=== PATIENT | male | born 1930 | race Caucasian/White ===

== ENCOUNTER 2018-03-10 10:05 | Day surgery (SDC) | payer MEDICARE, BC ==
[~2018-03-10] VITALS: Ht 172.7 cm; Wt 86.5 kg
[2018-03-10] VITALS (11 sets, daily range): BP systolic 112–148; BP diastolic 52–77
[2018-03-10] MEDS ORDERED: dextrose ORAL solution 15 GM/59 ML bottle PO PRN ×2 (10:30)
[2018-03-10] MEDS ORDERED: diphenhydrAMINE 25mg capsule PO PRN (10:30)
[2018-03-10] MEDS ORDERED: nitroGLYCERIN 0.4mg SUBLingual tab SL PRN ×2 (10:30→14:25)
[2018-03-10] MEDS ORDERED: normal saline 1000ml 1,000 ML IV SCH ×2 (10:30→14:25)
[2018-03-10] MEDS ORDERED: glucagon, human recombinant 1mg kit SUBCUT PRN (10:30)
[2018-03-10] MEDS ORDERED: dextrose 50%-water 50ml dispensing syringe IV PRN ×2 (10:30)
[2018-03-10] MEDS ORDERED: insulin Lispro (HumaLOG) vial - multi-dose SQ SCH (10:30)
[2018-03-10] MEDS ORDERED: LORazepam 0.5 MG tablet PO PRN (10:30)
[2018-03-10] MEDS ORDERED: MESSAGE TO PHARMACY PO ONE (10:30)
[2018-03-10 11:22] LABS: BASOPHILS # (AUTO) 0.1 X10'3 (0-0.2); BASOPHILS % (AUTO) 0.9 % (0-1); EOSINOPHILS # (AUTO) 0.3 X10'3 (0-0.9); EOSINOPHILS % (AUTO) 4.1 % (0-6); HEMATOCRIT 41.6 % (42.0-52.0); LYMPHOCYTES # (AUTO) 1.3 X10'3 (1.1-4.8); MEAN CORPUSCULAR HGB CONC 33.7 % (33.0-36.5); MEAN CORPUSCULAR VOLUME 88.8 FL (78-98); MEAN PLATELET VOLUME 8.4 FL (7.4-10.4); MONOCYTES # (AUTO) 0.5 X10'3 (0-0.9); NEUTROPHILS # (AUTO) 5.3 X10'3 (1.8-7.7); PLATELET COUNT 235 X10'3 (140-440); RED BLOOD COUNT 4.68 X10'6 (4.70-6.10); RED CELL DISTRIBUTION WIDTH 14.7 % (11.5-14.5); WHITE BLOOD COUNT 7.5 X10'3 (4.5-11.0)
[2018-03-10 11:30] LABS: PROTHROMBIN TIME 9.9 SECONDS (9.0-12.0)
[2018-03-10] MEDS ORDERED: METF500T PO (11:30)
[2018-03-10] MEDS ORDERED: PRAV20TA4 PO (11:30)
[2018-03-10] MEDS ORDERED: LISI1TAB11 PO (11:30)
[2018-03-10] MEDS ORDERED: LANS30CA37 PO (11:30)
[2018-03-10] MEDS ORDERED: ETOD-78 PO (11:30)
[2018-03-10] MEDS ORDERED: FLO0.4C PO (11:30)
[2018-03-10] MEDS ORDERED: ASPI81TA52 PO (11:30)
[2018-03-10] MEDS ORDERED: RANI300T7 PO (11:30)
[2018-03-10 11:31] LABS: ALBUMIN 4.2 G/DL (3.4-5.0); ANION GAP 10 (8-16); BLOOD UREA NITROGEN 14 MG/DL (7-18); BUN/CREATININE RATIO 18.9 (5.4-32.0); CALCIUM 9.8 MG/DL (8.5-10.1); CHLORIDE 100 MMOL/L (99-107); CREATININE 0.74 MG/DL (0.60-1.10); POTASSIUM 4.1 MMOL/L (3.5-5.1); SODIUM 139 MMOL/L (135-145); TOTAL CARBON DIOXIDE 28.6 MMOL/L (24-32); eGFR > 90 ML/MIN
[2018-03-10 11:32] LABS: GLUCOSE 116 MG/DL (70-104)
[2018-03-10] MEDS ORDERED: midazolam 2 mg/2 ml injection ONE (12:26)
[2018-03-10] MEDS ORDERED: fentaNYL/PF 50MCG/1 ML 2ML syringe ONE (12:26)
[2018-03-10] MEDS ORDERED: iohexol 350 MG/ML 50ML vial IV ONE ×2 (12:27→13:02)
[2018-03-10] MEDS ORDERED: LIDOcaine 1%/PF (10mg/ml) 5ml vial ONE (12:27)
[2018-03-10] MEDS ORDERED: iohexol 350MG/ML 100ml bottle IV ONE (12:27)
[2018-03-10] MEDS ORDERED: proCHLORperazine 10 MG/2 ml inj IV PRN (14:25)
[2018-03-10] MEDS ORDERED: HYDROcodone/acetaminophen 10/325mg tab PO PRN (14:25)
[2018-03-10] MEDS ORDERED: OXAZEpam 15mg capsule PO PRN (14:25)
[2018-03-10] MEDS ORDERED: ondansetron/PF 4mg/2ml inj IV PRN (14:25)
[2018-03-10] MEDS ORDERED: HYDROcodone/acetaminophen 5mg/325mg tablet PO PRN (14:25)
[2018-03-10 18:57] LABS: HEMOGLOBIN A1C 5.8 % (4.5-6.2)
[2018-03-10] MEDS ORDERED: insulin glargine (Lantus) pen - multi-dose SQ SCH (21:00)
== END 2018-03-10 19:30 | disposition home or self-care (01) ==
LOC: SSTAY O 10:05
PROVIDERS: ATTEND Internal Medicine Cardiovascular Disease
DX: I25.119 Atherosclerotic heart disease of native coronary artery with unspecified angina pectoris (principal); E11.9 Type 2 diabetes mellitus without complications; E78.00 Pure hypercholesterolemia, unspecified; I10 Essential (primary) hypertension; M81.0 Age-related osteoporosis without current pathological fracture; N40.0 Benign prostatic hyperplasia without lower urinary tract symptoms; I08.0 Rheumatic disorders of both mitral and aortic valves; G89.29 Other chronic pain; Z98.42 Cataract extraction status, left eye; Z98.41 Cataract extraction status, right eye; Z79.82 Long term (current) use of aspirin; Z79.84 Long term (current) use of oral hypoglycemic drugs; Z87.891 Personal history of nicotine dependence; Z72.89 Other problems related to lifestyle; Z98.890 Other specified postprocedural states; Z79.899 Other long term (current) drug therapy
CPT/HCPCS: 36415; 71046; 80048; 82948; 83036; 85025; 85610; 93458; 93567; 99152; 99153; A6257; C1769; J1644; J2001; J2250; J3010; J7030; Q0163; Q9967; A4620; J1815

== ENCOUNTER 2018-03-16 12:30 | Inpatient (IN) | payer MEDICARE, BC ==
[~2018-03-16] VITALS: Ht 172.7 cm; Wt 85.0 kg
[~2018-03-16 12:30] MED LIST: ASPI81TA52 PO; FLO0.4C PO; LANS30CA37 PO; LISI1TAB11 PO; METF500T PO; PRAV20TA4 PO
[2018-03-16] MEDS ORDERED: METH500T4 PO (13:00)
[2018-03-16] MEDS ORDERED: DOCU-264 PO (13:00)
[2018-03-16 13:50] LABS: BASOPHILS # (AUTO) 0.1 X10'3 (0-0.2); BASOPHILS % (AUTO) 0.7 % (0-1); EOSINOPHILS # (AUTO) 0.4 X10'3 (0-0.9); LYMPHOCYTES # (AUTO) 1.4 X10'3 (1.1-4.8); LYMPHOCYTES % (AUTO) 17.4 % (21-51); MEAN CORPUSCULAR HEMOGLOBIN 30.2 PG (27.0-31.0); MEAN CORPUSCULAR HGB CONC 33.7 % (33.0-36.5); MEAN CORPUSCULAR VOLUME 89.4 FL (78-98); MEAN PLATELET VOLUME 8.5 FL (7.4-10.4); MONOCYTES # (AUTO) 0.7 X10'3 (0-0.9); MONOCYTES % (AUTO) 8.3 % (2-12); NEUTROPHILS # (AUTO) 5.5 X10'3 (1.8-7.7); NEUTROPHILS % (AUTO) 68.6 % (42-75); PRE OP HEMATOCRIT 35.8 % (42.0-52.0); PRE OP HEMOGLOBIN 12.1 g/dL (14.0-17.9); PRE OP PLATELET COUNT 202 X10'3 (140-440); RED CELL DISTRIBUTION WIDTH 14.1 % (11.5-14.5)
[2018-03-16] MEDS ORDERED: albuterol 2.5 MG/3 ML nebule NEB ONE (13:50)
[2018-03-16 13:51] LABS: CLARITY,URINE Cloudy (Clear); COLOR,URINE Yellow (Yellow); GLUCOSE, URINE Negative (Neg); KETONES,URINE Negative (Neg); LEUKOCYTE ESTERASE ,URINE Large (Neg); NITRITES, URINE Negative (Neg); OCCULT BLOOD,URINE Trace (Neg); PH,URINE 7.5 (4.8-8.0); PROTEIN,URINE Negative (Neg); UROBILINOGEN,URINE 0.2 E.U/dL (0.2-1.0)
[2018-03-16 13:58] LABS: UA COLLECTION TYPE NON-SPECIFIED
[2018-03-16 14:01] LABS: PRE OP PROTIME 10.4 SECONDS (9.0-12.0)
[2018-03-16 14:01] LABS: MUCUS STRANDS NONE SEEN /LPF (Neg); SQUAMOUS EPITHELIAL CELL,UR MODERATE /LPF (FEW)
[2018-03-16 14:02] LABS: BACTERIA,URINE 4+ /HPF (Neg); RBC,URINE 0-2 /HPF (0-2)
[2018-03-16 14:03] LABS: WBC CLUMPS,URINE FEW /HPF (NEGATIVE)
[2018-03-16 14:07] LABS: ALBUMIN 3.4 G/DL (3.4-5.0); ALBUMIN/GLOBULIN RATIO 0.9 (1.1-1.5); ALKALINE PHOSPHATASE 53 IU/L (46-116); BLOOD UREA NITROGEN 12 MG/DL (7-18); BUN/CREATININE RATIO 16.7 (5.4-32.0); CHLORIDE 102 MMOL/L (99-107); CREATININE 0.72 MG/DL (0.60-1.10); PRE OP ALT 20 U/L (30-65); PRE OP ANION GAP 6 (8-16); PRE OP AST 13 U/L (10-37); PRE OP BILIRUB, TOTAL 0.4 MG/DL (0.0-1.0); PRE OP GLUCOSE 91 MG/DL (70-104); PRE OP POTASSIUM 3.9 MMOL/L (3.4-5.1); PRE OP SODIUM 138 MMOL/L (135-145); TOTAL CARBON DIOXIDE 30.1 MMOL/L (24-32); TOTAL PROTEIN 7.1 G/DL (6.4-8.2); eGFR > 90 ML/MIN
[2018-03-16 14:12] LABS: HEMOGLOBIN A1C 5.7 % (4.5-6.2)
[2018-03-16 15:40] LABS: ABG BASE EXCESS 0.3 mmol/L (-2.0-3.0); ABG HCO3 24.2 mmol/L (22.0-26.0); ABG OXYGEN SATURATION 96.6 % (95-98); ABG PCO2 (T) 36.7 mmHg (35.0-48.0); ABG PH (T) 7.437 (7.350-7.450); ABG PO2 (T) 85.5 mmHg (83-108); ALLEN'S TEST Positive; FCOHb 0.5 % (0.5-1.5); FMetHb 0.1 % (0.3-1.12); TOTAL HEMOGLOBIN 12.9 G/dl (14.0-18.0)
[2018-03-18] VITALS (16 sets, daily range): BP systolic 128–168; BP diastolic 46–75
[2018-03-18] MEDS ORDERED: ringers solution, lacted 1,000 ML IV SCH (05:00)
[2018-03-18] MEDS ORDERED: dextrose 50%-water 50ml dispensing syringe IV PRN ×2 (05:30→13:25)
[2018-03-18] MEDS ORDERED: vancomycin inj 1,500 MG in normal saline 300ml IV soln IV ONE (05:30)
[2018-03-18] MEDS ORDERED: ceFAZolin inj. 2,000 MG in normal saline 100ml IV soln 100 ML IV ONE (05:30)
[2018-03-18] MEDS ORDERED: LORazepam 2 mg/ml vial IV ONE (05:30)
[2018-03-18] MEDS ORDERED: famotidine 20mg tablet PO ONE (05:30)
[2018-03-18] MEDS ORDERED: calcium chloride 100 MG/1 ML inj IV ONE (08:00)
[2018-03-18] MEDS ORDERED: magnesium 1 GM/2 ML inj ONE (08:00)
[2018-03-18] MEDS ORDERED: methylPREDNISolone sod succ 1000mg vial ONE (08:00)
[2018-03-18] MEDS ORDERED: papaverine 30 mg/ml 2ml inj. ONE (08:00)
[2018-03-18] MEDS ORDERED: LIDOcaine 2% (20 mg/ml) 5ml cardiac syringe ONE (08:00)
[2018-03-18] MEDS ORDERED: potassium Cl 2 mEq/ml inj IV ONE (08:00)
[2018-03-18] MEDS: mupirocin 2% ointment 22GM TP SCH ×2 (08:00→08:32)
[2018-03-18] MEDS ORDERED: heparin 10,000 units/1 ML INJ ONE ×2 (08:00)
[2018-03-18] MEDS ORDERED: phenylephrine 1% (X-tra strg) 15ml nasal spray NS ONE (08:00)
[2018-03-18] MEDS ORDERED: albumin (human) 25% 100 ML IV solution IV ONE (08:00)
[2018-03-18] MEDS ORDERED: heparin 1,000 units/ml 10ml inj ONE (08:00)
[2018-03-18] MEDS ORDERED: LORazepam 2 mg/ml vial ONE (08:24)
[2018-03-18] MEDS: insulin regular, human 100 UNITS in normal saline 100ml IV soln 99 ML IV SCH ×12 (08:34→21:24)
[2018-03-18] MEDS ORDERED: SUFENTANIL CITRATE 50 MCG/ML 2ml ampule IV ONE (09:38)
[2018-03-18] MEDS ORDERED: MIDAZolam 1mg/ml 10ml vial ONE (09:38)
[2018-03-18] MEDS ORDERED: rocuronium 10mg/ml inj IV ONE ×3 (09:41→11:01)
[2018-03-18] MEDS ORDERED: propofol inj 20 ML IV ONE (09:43)
[2018-03-18] MEDS ORDERED: protamine sulf. 10mg/ml inj. IV ONE (09:55)
[2018-03-18] MEDS ORDERED: sevoflurane 250ml liquid IH ONE (09:55)
[2018-03-18 10:26] LABS: ABG BASE EXCESS -2.8 mmol/L (-2.0-3.0); ABG HCO3 21.8 mmol/L (22.0-26.0); ABG OXYGEN SATURATION 99.4 % (95-98); ABG PCO2 37.3 mmHg (35.0-45.0); ABG PH 7.385 (7.350-7.450); ABG PO2 372.7 mmHg (60.0-100.0); CL (ABG) 105 mmol/L (99-107); FCOHb 0.3 % (0.5-1.5); FMetHb 0.4 % (0.3-1.12); FO2Hb 98.7 % (94-100); GLUCOSE (ABG) 91 mg/dl (70-105); NA (ABG) 136 mmol/L (135-145); TOTAL HEMOGLOBIN 11.2 G/dl (14.0-18.0)
[2018-03-18 10:41] LABS: ACT @ 1.70 U 283 SEC (193-297); ACT @ 2.84 U 449 SEC (260-420); BASELINE ACT 133 SEC (101-148); PATIENT WEIGHT 84.0k KG
[2018-03-18] MEDS ORDERED: TRANEXAMIC ACID IV ONE ×2 (10:55→10:59)
[2018-03-18] MEDS ORDERED: NORMAL SALINE IV ONE ×2 (10:55→10:59)
[2018-03-18 11:26] LABS: ABG BASE EXCESS -2.9 mmol/L (-2.0-3.0); ABG HCO3 22.3 mmol/L (22.0-26.0); ABG OXYGEN SATURATION 82.2 % (95-98); ABG PCO2 40.7 mmHg (35.0-45.0); ABG PH 7.357 (7.350-7.450); ABG PO2 48.9 mmHg (60.0-100.0); CL (ABG) 104 mmol/L (99-107); FCOHb 0.3 % (0.5-1.5); FMetHb 0.3 % (0.3-1.12); FO2Hb 81.7 % (94-100); GLUCOSE (ABG) 98 mg/dl (70-105); IONIZED CA (ABG) 1.19 mmol/L (1.03-1.32); K (ABG) 4.1 mmol/L (3.3-5.1); NA (ABG) 134 mmol/L (135-145); TOTAL HEMOGLOBIN 10.8 G/dl (14.0-18.0)
[2018-03-18] MEDS ORDERED: papaverine 30 mg/ml 2ml inj. IA ONE (11:45)
[2018-03-18] MEDS ORDERED: heparin 10,000 units/1 ML INJ IR ONE (11:45)
[2018-03-18 11:56] LABS: ABG BASE EXCESS -0.9 mmol/L (-2.0-3.0); ABG HCO3 22.9 mmol/L (22.0-26.0); ABG OXYGEN SATURATION 99.5 % (95-98); ABG PCO2 34.3 mmHg (35.0-45.0); ABG PH 7.443 (7.350-7.450); ABG PO2 284.7 mmHg (60.0-100.0); CL (ABG) 105 mmol/L (99-107); FCOHb 0.6 % (0.5-1.5); FO2Hb 98.9 % (94-100); GLUCOSE (ABG) 110 mg/dl (70-105); IONIZED CA (ABG) 1.07 mmol/L (1.03-1.32); K (ABG) 5.6 mmol/L (3.3-5.1); NA (ABG) 132 mmol/L (135-145); TOTAL HEMOGLOBIN 8.3 G/dl (14.0-18.0)
[2018-03-18 12:01] LABS: ABG BASE EXCESS VENOUS -0.9 mmol/L; ABG HCO3 VENOUS 23.7 mmol/L; ABG PCO2 VENOUS 38.8 mmHg; ABG PO2 VENOUS 71.4 mmHg; CL (ABG) 104 mmol/L (99-107); FCOHb VENOUS 0.6 %; FHHb VENOUS 5.9 %; FO2Hb VENOUS 93.5 %; GLUCOSE (ABG) 121 mg/dl (70-105); IONIZED CA (ABG) 1.11 mmol/L (1.03-1.32); K (ABG) 4.7 mmol/L (3.3-5.1); NA (ABG) 133 mmol/L (135-145); TOTAL HEMOGLOBIN 8.7 G/dl (14.0-18.0)
[2018-03-18 12:26] LABS: ABG BASE EXCESS -1.2 mmol/L (-2.0-3.0); ABG HCO3 23.4 mmol/L (22.0-26.0); ABG OXYGEN SATURATION 99.1 % (95-98); ABG PCO2 38.3 mmHg (35.0-45.0); ABG PH 7.403 (7.350-7.450); ABG PO2 183.2 mmHg (60.0-100.0); CL (ABG) 103 mmol/L (99-107); FCOHb 0.7 % (0.5-1.5); FMetHb 0.2 % (0.3-1.12); FO2Hb 98.2 % (94-100); GLUCOSE (ABG) 135 mg/dl (70-105); IONIZED CA (ABG) 1.15 mmol/L (1.03-1.32); K (ABG) 4.9 mmol/L (3.3-5.1); NA (ABG) 132 mmol/L (135-145); TOTAL HEMOGLOBIN 8.3 G/dl (14.0-18.0)
[2018-03-18] MEDS ORDERED: ePHEDrine 50MG/ML INJ. ONE (13:05)
[2018-03-18] MEDS ORDERED: nitroGLYCERIN-Tridil 50MG/D5W 250 ML IV PRN (13:23)
[2018-03-18] MEDS ORDERED: DOPamine 400mg/D5W 250ml 250 ML IV PRN (13:23)
[2018-03-18] MEDS ORDERED: niCARDipine/sod cl 20mg/200ml 200 ML IV PRN (13:23)
[2018-03-18] MEDS ORDERED: Neutra Phos packet PO PRN (13:25)
[2018-03-18] MEDS ORDERED: magnesium 4gm in 100ml NS 100 ML IV PRN (13:25)
[2018-03-18] MEDS ORDERED: albumin (Human) 5% 250ml 250 ML IV PRN (13:25)
[2018-03-18] MEDS ORDERED: normal saline 250ml IV soln 250 ML IV PRN (13:25)
[2018-03-18] MEDS ORDERED: metoclopramide 5 mg/ml inj IV PRN (13:25)
[2018-03-18] MEDS ORDERED: sodium phosphate inj. 15 MMOL in dextrose 5%-water 150 ML IV PRN (13:25)
[2018-03-18] MEDS ORDERED: acetaminophen 325mg tablet PO PRN (13:25)
[2018-03-18] MEDS ORDERED: potassium Cl 20mEq/100mL bag 100 ML IV PRN ×3 (13:25)
[2018-03-18] MEDS ORDERED: magnesium 2GM in 50ml NS 50 ML IV PRN (13:25)
[2018-03-18] MEDS ORDERED: ondansetron/PF 4mg/2ml inj IV PRN (13:25)
[2018-03-18] MEDS ORDERED: magnesium hydroxide 30ml (MOM) UD suspension PO PRN (13:25)
[2018-03-18] MEDS ORDERED: sodium phosphate inj. 30 MMOL in dextrose 5%-water 250 ML IV PRN (13:25)
[2018-03-18] MEDS ORDERED: insulin regular, human inj. 100 UNITS in normal saline 100ml IV soln 100 ML IV SCH ×2 (13:25)
[2018-03-18] MEDS ORDERED: HYDROcodone/acetaminophen 10/325mg tab PO PRN (13:25)
[2018-03-18 13:51] LABS: ABG HCO3 22.6 mmol/L (22.0-26.0); ABG OXYGEN SATURATION 95.2 % (95-98); ABG PCO2 (T) 32.6 mmHg (35.0-48.0); ABG PH (T) 7.455 (7.350-7.450); ABG PO2 (T) 71.6 mmHg (83-108); FCOHb 0.3 % (0.5-1.5); FO2Hb 94.9 % (94-100); MINUTE VOLUME 6 L/min; PATIENT TEMPERATURE 36.2; PEEP 5 cm H2O; RESPIRATORY RATE 12 b/min; RESPIRATORY RATE (OBSERVED) 12 b/min; TIDAL VOLUME 700 mL; TOTAL HEMOGLOBIN 10.7 G/dl (14.0-18.0)
[2018-03-18] MEDS: morphine 4 MG/ML inj SYRINge IV PRN ×4 (14:00→23:32)
[2018-03-18 14:01] LABS: BASOPHILS % (AUTO) 0.2 % (0-1); EOSINOPHILS # (AUTO) 0.3 X10'3 (0-0.9); EOSINOPHILS % (AUTO) 2.6 % (0-6); LYMPHOCYTES # (AUTO) 0.8 X10'3 (1.1-4.8); LYMPHOCYTES % (AUTO) 6.2 % (21-51); MEAN CORPUSCULAR HEMOGLOBIN 30.5 PG (27.0-31.0); MEAN CORPUSCULAR HGB CONC 34.5 % (33.0-36.5); MEAN CORPUSCULAR VOLUME 88.4 FL (78-98); MEAN PLATELET VOLUME 8.4 FL (7.4-10.4); MONOCYTES # (AUTO) 0.4 X10'3 (0-0.9); MONOCYTES % (AUTO) 3.3 % (2-12); NEUTROPHILS # (AUTO) 11.6 X10'3 (1.8-7.7); NEUTROPHILS % (AUTO) 87.7 % (42-75); PLATELET COUNT 133 X10'3 (140-440); RED BLOOD COUNT 3.28 X10'6 (4.70-6.10); RED CELL DISTRIBUTION WIDTH 14.1 % (11.5-14.5); WHITE BLOOD COUNT 13.2 X10'3 (4.5-11.0)
[2018-03-18 14:04] LABS: INR 1.1 INR; PARTIAL THROMBOPLASTIN TIME 27 SECONDS (22-32); PROTHROMBIN TIME 11.4 SECONDS (9.0-12.0)
[2018-03-18 14:08] LABS: ALANINE AMINOTRANSFERASE 16 U/L (12-78); ALBUMIN 2.5 G/DL (3.4-5.0); ALBUMIN/GLOBULIN RATIO 1.1 (1.1-1.5); ALKALINE PHOSPHATASE 31 IU/L (46-116); ANION GAP 8 (8-16); ASPARTATE AMINO TRANSFERASE 17 U/L (10-37); BILIRUBIN,TOTAL 0.6 MG/DL (0.1-1.0); BLOOD UREA NITROGEN 10 MG/DL (7-18); BUN/CREATININE RATIO 17.9 (5.4-32.0); CALCIUM 7.8 MG/DL (8.5-10.1); CHLORIDE 108 MMOL/L (99-107); CREATININE 0.56 MG/DL (0.60-1.10); GLUCOSE 138 MG/DL (70-104); MAGNESIUM 3.7 MG/DL (1.5-2.4); PHOSPHORUS 2.4 MG/DL (2.3-4.5); POTASSIUM 4.3 MMOL/L (3.5-5.1); SODIUM 140 MMOL/L (135-145); TOTAL CARBON DIOXIDE 24.1 MMOL/L (24-32); TOTAL PROTEIN 4.8 G/DL (6.4-8.2); eGFR > 90 ML/MIN
[2018-03-18] MEDS: sodium chloride 0.45% 1,000 ML IV SCH (14:35)
[2018-03-18] MEDS: ceFAZolin 1GM/D5W- ADD-VANTAGE 50 ML IV SCH (16:30)
[2018-03-18] MEDS: insulin Lispro (HumaLOG) vial - multi-dose SQ SCH (17:22)
[2018-03-18 20:00] LABS: BASOPHILS % (AUTO) 0 % (0-1); EOSINOPHILS # (AUTO) 0.2 X10'3 (0-0.9); HEMATOCRIT 31.2 % (42.0-52.0); HEMOGLOBIN 10.5 g/dl (14.0-17.9); LYMPHOCYTES # (AUTO) 0.2 X10'3 (1.1-4.8); LYMPHOCYTES % (AUTO) 1.7 % (21-51); MEAN CORPUSCULAR HEMOGLOBIN 30.2 PG (27.0-31.0); MEAN CORPUSCULAR HGB CONC 33.6 % (33.0-36.5); MEAN CORPUSCULAR VOLUME 89.8 FL (78-98); MEAN PLATELET VOLUME 8.5 FL (7.4-10.4); MONOCYTES # (AUTO) 0.4 X10'3 (0-0.9); NEUTROPHILS # (AUTO) 14.1 X10'3 (1.8-7.7); NEUTROPHILS % (AUTO) 94.3 % (42-75); PLATELET COUNT 160 X10'3 (140-440); RED BLOOD COUNT 3.47 X10'6 (4.70-6.10); RED CELL DISTRIBUTION WIDTH 14.4 % (11.5-14.5)
[2018-03-18] MEDS: docusate sod 100mg capsule PO SCH (20:00)
[2018-03-18 20:02] LABS: ALBUMIN 2.8 G/DL (3.4-5.0); ANION GAP 12 (8-16); BLOOD UREA NITROGEN 12 MG/DL (7-18); BUN/CREATININE RATIO 14.3 (5.4-32.0); CALCIUM 7.9 MG/DL (8.5-10.1); CHLORIDE 108 MMOL/L (99-107); CREATININE 0.84 MG/DL (0.60-1.10); GLUCOSE 146 MG/DL (70-104); POTASSIUM 4.1 MMOL/L (3.5-5.1); SODIUM 141 MMOL/L (135-145); TOTAL CARBON DIOXIDE 21.4 MMOL/L (24-32); eGFR 87 ML/MIN
[2018-03-18] MEDS: mupirocin 2% nasal ointment 1gm UD NS SCH (20:34)
[2018-03-18 21:26] LABS: ABG BASE EXCESS -0.9 mmol/L (-2.0-3.0); ABG HCO3 21.7 mmol/L (22.0-26.0); ABG OXYGEN SATURATION 98.3 % (95-98); ABG PH (T) 7.479 (7.350-7.450); ABG PO2 (T) 120.4 mmHg (83-108); FCOHb 0.3 % (0.5-1.5); FMetHb 0.1 % (0.3-1.12); FO2Hb 97.9 % (94-100); PATIENT TEMPERATURE 37.3; PEEP 5 cm H2O; TOTAL HEMOGLOBIN 11.3 G/dl (14.0-18.0)
[2018-03-18] MEDS: vancomycin/NS 1 GM ADD-VANTAGE 250 ML IV SCH (22:15)
[2018-03-19] VITALS (24 sets, daily range): BP systolic 106–158; BP diastolic 4–73
[2018-03-19] MEDS: ceFAZolin 1GM/D5W- ADD-VANTAGE 50 ML IV SCH ×3 (00:30→16:24)
[2018-03-19 02:11] LABS: BASOPHILS % (AUTO) 0 % (0-1); EOSINOPHILS % (AUTO) 0 % (0-6); HEMATOCRIT 28.7 % (42.0-52.0); HEMOGLOBIN 9.6 g/dl (14.0-17.9); LYMPHOCYTES # (AUTO) 0.4 X10'3 (1.1-4.8); LYMPHOCYTES % (AUTO) 2.8 % (21-51); MEAN CORPUSCULAR HEMOGLOBIN 29.9 PG (27.0-31.0); MEAN CORPUSCULAR HGB CONC 33.4 % (33.0-36.5); MEAN CORPUSCULAR VOLUME 89.5 FL (78-98); MEAN PLATELET VOLUME 8.7 FL (7.4-10.4); MONOCYTES # (AUTO) 0.7 X10'3 (0-0.9); MONOCYTES % (AUTO) 5.2 % (2-12); NEUTROPHILS # (AUTO) 12.5 X10'3 (1.8-7.7); PLATELET COUNT 157 X10'3 (140-440); RED BLOOD COUNT 3.21 X10'6 (4.70-6.10); RED CELL DISTRIBUTION WIDTH 14.3 % (11.5-14.5); WHITE BLOOD COUNT 13.6 X10'3 (4.5-11.0)
[2018-03-19 02:17] LABS: PARTIAL THROMBOPLASTIN TIME 23 SECONDS (22-32); PROTHROMBIN TIME 10.7 SECONDS (9.0-12.0)
[2018-03-19 02:20] LABS: ALANINE AMINOTRANSFERASE 16 U/L (12-78); ALBUMIN 2.8 G/DL (3.4-5.0); ALBUMIN/GLOBULIN RATIO 1.1 (1.1-1.5); ALKALINE PHOSPHATASE 34 IU/L (46-116); ANION GAP 10 (8-16); ASPARTATE AMINO TRANSFERASE 22 U/L (10-37); BILIRUBIN,TOTAL 0.6 MG/DL (0.1-1.0); BLOOD UREA NITROGEN 12 MG/DL (7-18); CHLORIDE 107 MMOL/L (99-107); CREATININE 0.75 MG/DL (0.60-1.10); GLUCOSE 119 MG/DL (70-104); MAGNESIUM 2.7 MG/DL (1.5-2.4); PHOSPHORUS 2.7 MG/DL (2.3-4.5); POTASSIUM 4.5 MMOL/L (3.5-5.1); SODIUM 140 MMOL/L (135-145); TOTAL CARBON DIOXIDE 22.9 MMOL/L (24-32); TOTAL PROTEIN 5.3 G/DL (6.4-8.2); eGFR > 90 ML/MIN
[2018-03-19] MEDS: insulin regular, human 100 UNITS in normal saline 100ml IV soln 99 ML IV SCH ×2 (05:23)
[2018-03-19 05:29] LABS: ACTIVATED CLOTTING TIME 118 SEC (101-148)
[2018-03-19 05:40] LABS: ABG BASE EXCESS VENOUS -2.3 mmol/L; ABG HCO3 VENOUS 22.3 mmol/L; ABG PCO2 VENOUS 37.3 mmHg; ABG PO2 VENOUS 40.2 mmHg; CL (ABG) 104 mmol/L (99-107); FCOHb VENOUS 0.4 %; FHHb VENOUS 25.8 %; FMetHb VENOUS 0.6 %; FO2Hb VENOUS 73.2 %; GLUCOSE (ABG) 134 mg/dl (70-105); IONIZED CA (ABG) 1.22 mmol/L (1.03-1.32); K (ABG) 4.2 mmol/L (3.3-5.1); NA (ABG) 134 mmol/L (135-145); TOTAL HEMOGLOBIN 9.2 G/dl (14.0-18.0)
[2018-03-19] MEDS: docusate sod 100mg capsule PO SCH ×2 (08:16→20:25)
[2018-03-19] MEDS: metoprolol tartrate 12.5mg (1/2 tablet) PO SCH ×2 (08:17→20:25)
[2018-03-19] MEDS: atorvastatin 10mg tablet PO SCH (08:17)
[2018-03-19] MEDS: aspirin 325mg tablet, delayed-release (Ecotrin) PO SCH (08:17)
[2018-03-19] MEDS: tamsulosin 0.4mg capsule PO SCH (08:17)
[2018-03-19] MEDS: pantoprazole 40mg Tablet.DR PO SCH (08:17)
[2018-03-19] MEDS: vancomycin/NS 1 GM ADD-VANTAGE 250 ML IV SCH ×2 (08:28→20:25)
[2018-03-19] MEDS: insulin Lispro (HumaLOG) vial - multi-dose SQ SCH ×3 (08:39→18:00)
[2018-03-19] MEDS: mupirocin 2% nasal ointment 1gm UD NS SCH ×2 (08:44→20:25)
[2018-03-19] MEDS: HYDROcodone/acetaminophen 10/325mg tab PO PRN ×2 (12:45→20:32)
[2018-03-19] MEDS: lactobacillus rhamnosus 10,000 MMU CELLS/CAPSULE PO SCH (20:25)
[2018-03-19] MEDS ORDERED: dextrose ORAL solution 15 GM/59 ML bottle PO PRN ×2 (20:50)
[2018-03-19] MEDS ORDERED: dextrose 50%-water 50ml dispensing syringe IV PRN ×2 (20:50)
[2018-03-19] MEDS ORDERED: glucagon, human recombinant 1mg kit SUBCUT PRN (20:50)
[2018-03-19] MEDS: insulin glargine (Lantus) pen - multi-dose SQ SCH (21:53)
[2018-03-19] MEDS: morphine 4 MG/ML inj SYRINge IV PRN (22:09)
[2018-03-20] VITALS (23 sets, daily range): BP systolic 112–157; BP diastolic 51–81
[2018-03-20] MEDS: ceFAZolin 1GM/D5W- ADD-VANTAGE 50 ML IV SCH (00:31)
[2018-03-20 04:18] LABS: BASOPHILS % (AUTO) 0.1 % (0-1); EOSINOPHILS % (AUTO) 0 % (0-6); HEMATOCRIT 25.2 % (42.0-52.0); HEMOGLOBIN 8.5 g/dl (14.0-17.9); LYMPHOCYTES # (AUTO) 1.1 X10'3 (1.1-4.8); LYMPHOCYTES % (AUTO) 7.2 % (21-51); MEAN CORPUSCULAR HEMOGLOBIN 30.1 PG (27.0-31.0); MEAN CORPUSCULAR HGB CONC 33.8 % (33.0-36.5); MEAN PLATELET VOLUME 8.8 FL (7.4-10.4); MONOCYTES # (AUTO) 1.2 X10'3 (0-0.9); MONOCYTES % (AUTO) 7.6 % (2-12); NEUTROPHILS # (AUTO) 12.9 X10'3 (1.8-7.7); NEUTROPHILS % (AUTO) 85.1 % (42-75); PLATELET COUNT 115 X10'3 (140-440); RED BLOOD COUNT 2.83 X10'6 (4.70-6.10); RED CELL DISTRIBUTION WIDTH 14.4 % (11.5-14.5); WHITE BLOOD COUNT 15.1 X10'3 (4.5-11.0)
[2018-03-20 04:31] LABS: ALBUMIN 2.7 G/DL (3.4-5.0); ANION GAP 7 (8-16); BLOOD UREA NITROGEN 13 MG/DL (7-18); BUN/CREATININE RATIO 17.1 (5.4-32.0); CALCIUM 8.3 MG/DL (8.5-10.1); CHLORIDE 103 MMOL/L (99-107); CREATININE 0.76 MG/DL (0.60-1.10); GLUCOSE 158 MG/DL (70-104); MAGNESIUM 2.1 MG/DL (1.5-2.4); PHOSPHORUS 2.6 MG/DL (2.3-4.5); POTASSIUM 4.6 MMOL/L (3.5-5.1); SODIUM 136 MMOL/L (135-145); TOTAL CARBON DIOXIDE 26.4 MMOL/L (24-32); eGFR > 90 ML/MIN
[2018-03-20] MEDS: HYDROcodone/acetaminophen 10/325mg tab PO PRN ×2 (05:11→09:46)
[2018-03-20] MEDS: morphine 4 MG/ML inj SYRINge IV PRN (06:08)
[2018-03-20] MEDS: pantoprazole 40mg Tablet.DR PO SCH (08:12)
[2018-03-20] MEDS: lactobacillus rhamnosus 10,000 MMU CELLS/CAPSULE PO SCH ×2 (08:12→20:55)
[2018-03-20] MEDS: docusate sod 100mg capsule PO SCH ×2 (08:12→20:54)
[2018-03-20] MEDS: tamsulosin 0.4mg capsule PO SCH (08:12)
[2018-03-20] MEDS: atorvastatin 10mg tablet PO SCH (08:12)
[2018-03-20] MEDS: mupirocin 2% nasal ointment 1gm UD NS SCH (08:12)
[2018-03-20] MEDS: aspirin 325mg tablet, delayed-release (Ecotrin) PO SCH (08:12)
[2018-03-20] MEDS: metoprolol tartrate 12.5mg (1/2 tablet) PO SCH (09:46)
[2018-03-20] MEDS: insulin Lispro (HumaLOG) vial - multi-dose SQ SCH ×2 (13:21→19:33)
[2018-03-20] MEDS: sodium chloride 0.45% 1,000 ML IV SCH (13:23)
[2018-03-20] MEDS: insulin glargine (Lantus) pen - multi-dose SQ SCH (20:54)
[2018-03-20] MEDS: metoprolol tartrate 25mg tablet PO SCH (20:55)
[2018-03-21] MEDS: insulin regular, human 100 UNITS in normal saline 100ml IV soln 99 ML IV SCH ×2 (00:10)
[2018-03-21 03:00] VITALS: BP 124/67
[2018-03-21 05:48] LABS: BASOPHILS % (AUTO) 0.3 % (0-1); EOSINOPHILS # (AUTO) 0.1 X10'3 (0-0.9); HEMATOCRIT 25.1 % (42.0-52.0); HEMOGLOBIN 8.5 g/dl (14.0-17.9); LYMPHOCYTES # (AUTO) 1.4 X10'3 (1.1-4.8); LYMPHOCYTES % (AUTO) 13.1 % (21-51); MEAN CORPUSCULAR HEMOGLOBIN 30.3 PG (27.0-31.0); MEAN CORPUSCULAR HGB CONC 33.9 % (33.0-36.5); MEAN CORPUSCULAR VOLUME 89.5 FL (78-98); MEAN PLATELET VOLUME 8.8 FL (7.4-10.4); MONOCYTES % (AUTO) 9.6 % (2-12); PLATELET COUNT 105 X10'3 (140-440); WHITE BLOOD COUNT 10.6 X10'3 (4.5-11.0)
[2018-03-21 06:00] VITALS: BP 131/70
[2018-03-21 06:25] LABS: ALBUMIN 2.6 G/DL (3.4-5.0); ANION GAP 8 (8-16); BLOOD UREA NITROGEN 14 MG/DL (7-18); BUN/CREATININE RATIO 23.3 (5.4-32.0); CALCIUM 8.3 MG/DL (8.5-10.1); CHLORIDE 103 MMOL/L (99-107); GLUCOSE 104 MG/DL (70-104); PHOSPHORUS 2.5 MG/DL (2.3-4.5); POTASSIUM 4.1 MMOL/L (3.5-5.1); SODIUM 138 MMOL/L (135-145); TOTAL CARBON DIOXIDE 27.4 MMOL/L (24-32); eGFR > 90 ML/MIN
[2018-03-21] MEDS: docusate sod 100mg capsule PO SCH ×2 (08:25→20:04)
[2018-03-21] MEDS: tamsulosin 0.4mg capsule PO SCH (08:25)
[2018-03-21] MEDS: lactobacillus rhamnosus 10,000 MMU CELLS/CAPSULE PO SCH ×2 (08:25→20:04)
[2018-03-21] MEDS: pantoprazole 40mg Tablet.DR PO SCH (08:25)
[2018-03-21] MEDS: aspirin 325mg tablet, delayed-release (Ecotrin) PO SCH (08:25)
[2018-03-21] MEDS: metoprolol tartrate 25mg tablet PO SCH ×2 (08:25→20:04)
[2018-03-21] MEDS: atorvastatin 10mg tablet PO SCH (08:25)
[2018-03-21] MEDS: metoprolol tartrate 12.5mg (1/2 tablet) PO SCH (08:40)
[2018-03-21] MEDS ORDERED: magnesium citrate 296ml oral solution PO ONE (09:20)
[2018-03-21 11:00] VITALS: BP 107/68
[2018-03-21 15:00] VITALS: BP 132/64
[2018-03-21 19:00] VITALS: BP 129/64
[2018-03-21 23:29] VITALS: BP 128/62
[2018-03-22 06:00] VITALS: BP 141/69
[2018-03-22] MEDS: tamsulosin 0.4mg capsule PO SCH (07:38)
[2018-03-22] MEDS: metoprolol tartrate 25mg tablet PO SCH (07:38)
[2018-03-22] MEDS: aspirin 325mg tablet, delayed-release (Ecotrin) PO SCH (07:38)
[2018-03-22] MEDS: atorvastatin 10mg tablet PO SCH (07:38)
[2018-03-22] MEDS: docusate sod 100mg capsule PO SCH (07:38)
[2018-03-22] MEDS: pantoprazole 40mg Tablet.DR PO SCH (07:38)
[2018-03-22] MEDS: lactobacillus rhamnosus 10,000 MMU CELLS/CAPSULE PO SCH (07:39)
[2018-03-22 08:22] LABS: BASOPHILS % (AUTO) 0.6 % (0-1); EOSINOPHILS # (AUTO) 0.4 X10'3 (0-0.9); EOSINOPHILS % (AUTO) 4.3 % (0-6); HEMATOCRIT 25.9 % (42.0-52.0); HEMOGLOBIN 8.8 g/dl (14.0-17.9); LYMPHOCYTES # (AUTO) 1.4 X10'3 (1.1-4.8); LYMPHOCYTES % (AUTO) 15.2 % (21-51); MEAN CORPUSCULAR HEMOGLOBIN 30.3 PG (27.0-31.0); MEAN CORPUSCULAR HGB CONC 33.9 % (33.0-36.5); MEAN CORPUSCULAR VOLUME 89.3 FL (78-98); MEAN PLATELET VOLUME 9.2 FL (7.4-10.4); MONOCYTES # (AUTO) 0.9 X10'3 (0-0.9); MONOCYTES % (AUTO) 9.9 % (2-12); NEUTROPHILS # (AUTO) 6.3 X10'3 (1.8-7.7); PLATELET COUNT 137 X10'3 (140-440); RED CELL DISTRIBUTION WIDTH 13.9 % (11.5-14.5); WHITE BLOOD COUNT 8.9 X10'3 (4.5-11.0)
[2018-03-22 08:34] LABS: ALBUMIN 2.4 G/DL (3.4-5.0); ANION GAP 6 (8-16); BLOOD UREA NITROGEN 12 MG/DL (7-18); BUN/CREATININE RATIO 19.7 (5.4-32.0); CALCIUM 8.1 MG/DL (8.5-10.1); CHLORIDE 103 MMOL/L (99-107); CREATININE 0.61 MG/DL (0.60-1.10); GLUCOSE 101 MG/DL (70-104); PHOSPHORUS 2.8 MG/DL (2.3-4.5); POTASSIUM 3.9 MMOL/L (3.5-5.1); SODIUM 137 MMOL/L (135-145); TOTAL CARBON DIOXIDE 28.4 MMOL/L (24-32); eGFR > 90 ML/MIN
[2018-03-22] MEDS: metoprolol tartrate 12.5mg (1/2 tablet) PO SCH (09:00)
[2018-03-22] MEDS ORDERED: HYDR-3972 PO (10:19)
[2018-03-22] MEDS ORDERED: METO25TA6 PO (10:19)
[2018-03-22 11:00] VITALS: BP 125/60
== END 2018-03-22 14:17 | disposition home or self-care (01) | DRG 236 ==
LOC: EDSTATUS 12:30 → PAS IN 03-18 08:07 → EDSTATUS 03-18 08:30 → CICU 2S 03-18 13:29 → PCU 3S 03-20 22:20
PROVIDERS: ADMIT Thoracic Surgery (Cardiothoracic Vascular Surgery); ATTEND Thoracic Surgery (Cardiothoracic Vascular Surgery)
PROC: 021109W Bypass Coronary Artery, Two Arteries from Aorta with Autologous Venous Tissue, Open Approach (ICD-10-PCS; 2018-03-18)
PROC: 06BQ4ZZ Excision of Left Saphenous Vein, Percutaneous Endoscopic Approach (ICD-10-PCS; 2018-03-18)
PROC: B24BZZ4 Ultrasonography of Heart with Aorta, Transesophageal (ICD-10-PCS; 2018-03-18)
PROC: 5A1221Z Performance of Cardiac Output, Continuous (ICD-10-PCS; 2018-03-18)
PROC: 0T9B80Z Drainage of Bladder with Drainage Device, Via Natural or Artificial Opening Endoscopic (ICD-10-PCS; 2018-03-18)
PROC: 03HY32Z Insertion of Monitoring Device into Upper Artery, Percutaneous Approach (ICD-10-PCS; 2018-03-18)
PROC: 05HM33Z Insertion of Infusion Device into Right Internal Jugular Vein, Percutaneous Approach (ICD-10-PCS; 2018-03-18)
PROC: B543ZZA Ultrasonography of Right Jugular Veins, Guidance (ICD-10-PCS; 2018-03-18)
PROC: 02100Z9 Bypass Coronary Artery, One Artery from Left Internal Mammary, Open Approach (ICD-10-PCS; principal; 2018-03-18 09:44)
DX: I25.119 Atherosclerotic heart disease of native coronary artery with unspecified angina pectoris (principal); E11.9 Type 2 diabetes mellitus without complications; I34.0 Nonrheumatic mitral (valve) insufficiency; N36.5 Urethral false passage; E78.00 Pure hypercholesterolemia, unspecified; R94.39 Abnormal result of other cardiovascular function study; I10 Essential (primary) hypertension; N40.0 Benign prostatic hyperplasia without lower urinary tract symptoms; M81.0 Age-related osteoporosis without current pathological fracture; Z88.8 Allergy status to other drugs, medicaments and biological substances; Z87.891 Personal history of nicotine dependence
CPT/HCPCS: 0232T; 93312; 93325; 36415; 36600; 71045; 71046; 80048; 80053; 81001; 82330; 82435; 82803; 82947; 82948; 83036; 83735; 84100; 84132; 84295; 85018; 85025; 85347; 85384; 85610; 85730; 86885; 86900; 86901; 86920; 87070; 87077; 87088; 87186; 93005; 93880; 93971; 94002; 94010; 94150; 94760; 97116; 97161; 97530; A6213; A6255; A6257; A6258; A6402; A6449; A7000; A7048; C1751; J0690; J1644; J1815; J2001; J2060; J2150; J2250; J2270; J2440; J2704; J2720; J2930; J3370; J3475; J3480; J7030; J7120; P9047

== ENCOUNTER 2018-04-18 10:28 | Emergency (ER) | payer MEDICARE, BC ==
[~2018-04-18] VITALS: Ht 172.7 cm; Wt 76.6 kg
[~2018-04-18 10:28] MED LIST changes: +DOCU-264 PO; +HYDR-3972 PO; -LISI1TAB11 PO; +METH500T4 PO; +METO25TA6 PO
[2018-04-18 12:01] VITALS: BP 153/83
== END 2018-04-18 12:04 | disposition home or self-care (01) ==
LOC: ER 10:28
DX: I10 Essential (primary) hypertension (principal); I25.10 Atherosclerotic heart disease of native coronary artery without angina pectoris; E11.9 Type 2 diabetes mellitus without complications; R60.9 Edema, unspecified; I25.2 Old myocardial infarction; Z95.1 Presence of aortocoronary bypass graft; Z98.890 Other specified postprocedural states; Z79.82 Long term (current) use of aspirin; Z79.84 Long term (current) use of oral hypoglycemic drugs; Z79.899 Other long term (current) drug therapy
CPT/HCPCS: 93005; 99283

== ENCOUNTER 2018-10-13 12:42 | Day surgery (SDC) | payer MEDICARE, BC ==
[~2018-10-13] VITALS: Ht 172.7 cm; Wt 81.8 kg
[2018-10-13 12:59] VITALS: BP 141/77
[2018-10-13] MEDS ORDERED: LISI1TAB9 PO (13:28)
[2018-10-13] MEDS ORDERED: MIDAZolam 5mg/5ml vial ONE (14:33)
[2018-10-13] MEDS ORDERED: fentaNYL/PF 50MCG/1 ML 2ML syringe ONE (14:33)
[2018-10-13] MEDS ORDERED: LIDOcaine Viscous 15ml cup ONE (14:33)
[2018-10-13 14:54] VITALS: BP 153/65
[2018-10-13 15:04] VITALS: BP 132/74
[2018-10-13 15:14] VITALS: BP 141/71
[2018-10-13 15:24] VITALS: BP 137/76
== END 2018-10-13 15:40 | disposition home or self-care (01) ==
LOC: GI LAB 12:42
PROVIDERS: ATTEND Internal Medicine Gastroenterology
DX: K29.50 Unspecified chronic gastritis without bleeding (principal); I10 Essential (primary) hypertension; I25.810 Atherosclerosis of coronary artery bypass graft(s) without angina pectoris; E11.9 Type 2 diabetes mellitus without complications; H91.8X3 Other specified hearing loss, bilateral; F10.10 Alcohol abuse, uncomplicated; Z85.828 Personal history of other malignant neoplasm of skin; Z98.41 Cataract extraction status, right eye; Z98.42 Cataract extraction status, left eye; Z95.1 Presence of aortocoronary bypass graft; Z87.891 Personal history of nicotine dependence; Z79.82 Long term (current) use of aspirin; Z87.440 Personal history of urinary (tract) infections; Z79.84 Long term (current) use of oral hypoglycemic drugs; Z98.890 Other specified postprocedural states; Z79.899 Other long term (current) drug therapy
CPT/HCPCS: 43239; G0500; J2250; J3010; J7030; 99152; A4620